=== PATIENT | female | born 1990 | race Caucasian/White ===

== ENCOUNTER 2021-05-25 15:45 | Emergency (ER) | payer OTHER, SELFPAY ==
[2021-05-25 16:04] VITALS: BP 126/71; PULSE 86; RESP 16; TEMP 36.6; O2SAT 100
--- NOTE | 2021-05-25 16:05 | ED.URI ---
HPI - URI/Sore Throat General Chief Complaint: Upper Respiratory Infection Stated Complaint: sore throat Time Seen by Provider: 05/25/21 16:05 Source: patient and RN notes reviewed Mode of arrival: ambulatory Limitations: no limitations History of Present Illness HPI Narrative: 30-year-old female who is 3 months presents with concern for sore throat, nasal drainage, postnasal drainage. Reports her son has similar symptoms who was also exposed to strep. She denies nausea, vomiting, diarrhea, body aches, fever, cough, shortness of breath. She reports in a separate complaint, she also has right lower dental pain. Reports she finished a round of clindamycin 1 week ago for dental pain and jaw swelling which improved the pain. Reports she still has a bump on her gumline. Reports she has a dentist appointment in June. MD elicited complaint: sore throat Related Data Home Medications Medication Instructions Recorded Confirmed progesterone micronized mg 05/25/21 Allergies Allergy/AdvReac Type Severity Reaction Status Date / Time No Known Allergies Allergy Verified 05/25/21 16:19 Review of Systems Review of Systems: CONSTITUTIONAL: Denies malaise, chills, sweats, or fever. EYES: Denies visual changes, redness, or discharge. ENT: Reports rhinorrhea, congestion, sore throat. Denies sinus pain, otalgia. A bump on her gumline of the right lower side CARDIOVASCULAR: Denies chest pain, palpitations, or edema. RESPIRATORY: Denies cough or dyspnea. GASTROINTESTINAL: Denies abdominal pain, nausea, vomiting, diarrhea SKIN: Denies rash or itching. MUSCULOSKELETAL: Denies myalgia. NEUROLOGIC: Denies headache. All systems reviewed & are unremarkable except as noted in HPI and below PMFSH Past Medical History Medical History (Updated 05/25/21 @ 16:23 by Marii Herman NP) Anxiety Surgical History Surgical History History of myringotomy History of tonsillectomy and adenoidectomy Social History Social History Smoking status: Never smoker Alcohol intake: never Substance use: never Gender identity (if verbalized by the patient): Female Comments At time of signature, agree with nursing past medical, surgical, social and family history. There is no relevant family history pertinent to the presenting complaint Exam Narrative: GENERAL: Well-appearing, well-nourished, and in no acute distress. HEAD: Normocephalic EYES: PERRLA, conjunctivae clear ENT: Nares clear, turbinates erythematous, clear discharge. Mucous membranes moist. TM pearly andrade with sharp light reflex bilaterally; no tragal tenderness. Oropharynx not erythematous without lesions. Tonsils not enlarged and without exudate, no drooling, no hoarseness, no trismus, uvula midline. Periapical abscess noted below tooth #30 without significant gumline erythema, edema, no jawline edema noted NECK: Supple. No lymphadenopathy CHEST: Clear to auscultation, breath sounds equal. No wheezing, rhonchi, rales, or stridor. No respiratory distress, speaks in full sentences. HEART: Regular rate and rhythm. No murmur heard. SKIN: Warm, dry, no rash. NEURO: Alert and oriented x3. PSYCH: Normal mood and affect Course Course Emergency Course: Patient given copy of prescription for Augmentin, instructed to not fill the prescription unless her symptoms of dental pain and swelling worsen before she is a dentist. Patient not treated for presumptive strep. Patient is aware of diagnosis, understands and agrees to treatment plan. Anticipatory guidance given. Patient agrees to follow-up as directed and is aware of reasons to seek care at the emergency department. Portions of this record may have been created with voice recognition software Vital Signs Vital signs: Vital Signs Temperature 98 F 05/25/21 16:04 Pulse Rate 86 05/25/21 16:04 Respiratory Rate 16
== END 2021-05-25 16:33 | disposition home or self-care (01) ==
PROVIDERS: Emergency Provider Nurse Practitioner; PCP Nurse Practitioner Family
DX: K04.7 Periapical abscess without sinus (principal); J06.9 Acute upper respiratory infection, unspecified
CPT/HCPCS: 87081; 87880; 99213; G0463

== ENCOUNTER 2021-07-02 18:14 | Emergency (ER) | payer OTHER, SELFPAY ==
[2021-07-02 18:24] VITALS: BP 126/105; PULSE 79; RESP 18; TEMP 36.3; O2SAT 100
--- NOTE | 2021-07-02 18:47 | ED.ABDPAIN ---
HPI - Abdominal Pain General Chief Complaint: Abdominal Pain Stated Complaint: 17 weeks preg - abd pain Time Seen by Provider: 07/02/21 18:35 Source: patient Mode of arrival: ambulatory Limitations: no limitations History of Present Illness HPI narrative: This is a 30-year-old G2, P1, 17 weeks that presents to the emergency department for abdominal cramping. Reports intermittent crampy upper and lower abdominal pain. This has been ongoing since yesterday. She is worried about the baby which prompted her to be seen. She does report some nausea. Denies fever, vomiting, diarrhea, dysuria, hematuria, or vaginal bleeding. Related Data Home Medications Medication Instructions Recorded Confirmed progesterone micronized mg 05/25/21 Allergies Allergy/AdvReac Type Severity Reaction Status Date / Time amoxicillin Allergy Other Verified 07/02/21 19:14 Review of Systems Review of Systems: CONSTITUTIONAL: Denies fever GASTROINTESTINAL: Reports abdominal pain, nausea. Denies vomiting, or diarrhea. GENITOURINARY: Denies dysuria or hematuria. All systems reviewed & are unremarkable except as noted in HPI and below PMFSH Past Medical History Medical History (Updated 07/02/21 @ 20:25 by Sindhu Reese PA-C) Anxiety Surgical History Surgical History History of myringotomy History of tonsillectomy and adenoidectomy Social History Social History Smoking status: Never smoker Alcohol intake: never Substance use: never Gender identity (if verbalized by the patient): Female Exam Narrative: GENERAL: Well-appearing, well-nourished, and in no acute distress. HEAD: Normocephalic, atraumatic. EYES: EOMI. CHEST: Clear to auscultation. No respiratory distress. No wheezes rales or rhonchi HEART: Regular rate and rhythm. No murmur heard. Normal peripheral pulses. ABDOMEN: Gravid, nontender, nondistended, normal active bowel sounds. EXTREMITIES: Normal range of motion. No edema. SKIN: Warm, dry, no rash. NEURO: No focal deficits. Alert and oriented x3. PSYCH: Normal mood and affect Procedures Other Procedure Procedure 1: Other Procedure: Bedside ultrasound performed with appropriate movement and cardiac activity, heart rate noted to be 136 Course Consultations Consultation #1: Spoke with Dr. Colindres about patient and work-up who will follow up in clinic. Date: 07/02/21 Time: 20:22 Vital Signs Vital signs: Vital Signs Temperature 97.3 F L 07/02/21 18:24 Pulse Rate 79 07/02/21 18:24 Respiratory Rate 18 07/02/21 18:24 Blood Pressure 126/105 H 07/02/21 18:24 Pulse Oximetry 100 07/02/21 18:24 Temperature 97.9 F 07/02/21 19:09 Pulse Rate 74 07/02/21 19:09 Respiratory Rate 18 07/02/21 19:09 Blood Pressure 117/73 07/02/21 19:09 Pulse Oximetry 100 07/02/21 19:09 MDM - Abdominal Pain MDM Narrative Medical decision making narrative: Patient presents emergency department for upper and lower abdominal cramping noted intermittently since yesterday. She is afebrile and nontoxic-appearing. CBC is without leukocytosis. Does show normocytic anemia with hemoglobin of 11.2. Metabolic panel and lipase without concerning findings. UA with 10-15 white blood cells and trace bacteria, also many squamous epithelial cells. This will be sent for culture. Patient will be started on Macrobid for bacteriuria in . Patient hydrated and given Tylenol and Zofran with relief. Spoke with Dr. Colindres about patient and work-up who will follow up in clinic. Patient is stable and felt appropriate for further outpatient evaluation. She was given warnings to return to the ER Lab Data Attestation: I reviewed the patient's lab results. Result diagrams: 07/02/21 18:50 07/02/21 18:50 Labs: Lab Results 07/02/21 07/02/21 07/02/21 Range/Units
[2021-07-02 18:57] LABS: Basophils Percent Auto 0.4 % (0.2-1.2); Eosinophils Absolute Auto 0.2 K/mm3 (0-0.3); Hematocrit 32.9 % (37.0-47.0); Hemoglobin 11.2 g/dL (12.0-15.0); Immature Granulocyte Absolute 0.05 K/mm3 (0.00-0.031); Immature Granulocyte Percent A 0.6 % (0-0.5); Lymphocytes Absolute Auto 1.95 K/mm3 (0.9-3.2); Lymphocytes Percent Auto 23.5 % (18.3-44.2); Mean Corpuscular Volume 88.2 fl (80-100); Mean Platelet Volume 9.5 fl (7.4-10.4); Monocytes Absolute Auto 0.5 K/mm3 (0.1-0.6); Monocytes Percent Auto 5.4 % (2.6-8.5); Neutrophils Absolute Auto 5.7 K/mm3 (1.3-6.7); Neutrophils Percent Auto 68.1 % (45.5-73.1); Platelet Count Result 214 k/mm3 (150-375); Red Blood Count 3.73 M/mm3 (4.2-5.4); Red Cell Distribution Width 12.4 % (11.5-14.5); White Blood Count 8.3 K/mm3 (4.5-10.0)
[2021-07-02 19:08] LABS: Alanine Aminotransferase 10 U/L (4-35); Albumin Level 4.2 g/dL (3.5-5.1); Alkaline Phosphatase 56 U/L (38-126); Anion Gap 6 mmol/L (8-16); Aspartate Amino Transferase 18 U/L (14-36); Bilirubin,Total 0.3 mg/dL (0.2-1.3); Blood Urea Nitrogen 5 mg/dL (7-17); Carbon Dioxide 22 mmol/L (22-30); Chloride 103 mmol/L (98-107); Estimated CRCL calculation 201 ml/min; Estimated Glomerular Filt Rate > 60; Glucose 82 mg/dL (65-110); Lipase 31 U/L (23-300); Potassium 3.6 mmol/L (3.4-5.0); Sodium 131 mmol/L (137-145)
[2021-07-02 19:09] VITALS: BP 117/73; PULSE 74; RESP 18; TEMP 36.6; O2SAT 100
[2021-07-02 19:17] LABS: Add Urine Microscopic? YES; Appearance Urine Cloudy (Clear); Bacteria Urine Trace /hpf; Bilirubin Urine Negative (Negative); Blood Urine Negative (Negative); Color Urine Yellow (Yellow); Glucose Urine UA Negative (Negative); Ketones Urine 2+ mg/dL (Negative); Leukocyte Esterase Ur 2+ LEU/UL (Negative); Mucus Urine Rare /lpf; Nitrate Urine Negative (Negative); Protein Urine Negative (Negative); Specific Grav Ur 1.018 (1.001-1.035); Squamous Epithelial Cell Urine Many /hpf (Few); Urobilinogen Urine Negative mg/dL (<2.0)
[2021-07-02] MEDS: SODIUM CHLORIDE 0.9% IV 1,000 ML 999 ML IV CONT (19:28)
[2021-07-02] MEDS: ONDANSETRON INJ 4 MG/2 ML VIAL IV PUSH (19:29)
[2021-07-02 20:47] VITALS: BP 108/71; PULSE 62; RESP 16; TEMP 36.2; O2SAT 100
== END 2021-07-02 20:49 | disposition home or self-care (01) ==
PROVIDERS: Emergency Medicine; Emergency Provider Emergency Medicine; PCP Nurse Practitioner Family
DX: O26.892 Other specified pregnancy related conditions, second trimester (principal); R82.71 Bacteriuria; R10.30 Lower abdominal pain, unspecified; R10.10 Upper abdominal pain, unspecified; Z3A.17 17 weeks gestation of pregnancy
CPT/HCPCS: 36415; 80053; 81001; 83690; 85025; 87086; 96361; 96374; 96375; 99284; J0131; J2405; J7030

== ENCOUNTER 2021-08-11 00:48 | Emergency (ER) | payer OTHER, SELFPAY ==
[2021-08-11 01:10] VITALS: BP 134/89; PULSE 90; RESP 20; TEMP 37.8; O2SAT 99
--- NOTE | 2021-08-11 04:11 | ED.GENADULT ---
HPI - General Adult General Chief complaint: Unspecified Stated complaint: sick for a few days, 24 weeks preg. Time Seen by Provider: 08/11/21 03:19 History of Present Illness HPI narrative: 30-year-old female that is 24 weeks presents to the emergency department complaining of nasal congestion sore throat and body aches. Patient states she also has lost her sense of taste and smell. Patient is not vaccinated to Covid or influenza. Patient denies any chest pain or shortness of breath. Patient denies any abdominal pain, uterine cramping vaginal bleeding or vaginal discharge. Related Data Home Medications Medication Instructions Recorded Confirmed progesterone micronized mg 05/25/21 Allergies Allergy/AdvReac Type Severity Reaction Status Date / Time amoxicillin Allergy Other Verified 07/02/21 19:14 Review of Systems Review of Systems: All systems reviewed & are unremarkable except as noted in HPI and below Constitutional: Constitutional: Reports no additional constitutional complaints Eyes: Eyes: Reports no additional eye complaints ENT: Reports system reviewed and no additional complaints, except as documented Cardiovascular: Cardiovascular: Reports no additional cardiovascular complaints Respiratory: Respiratory: Reports no additional respiratory complaints Gastrointestinal: Gastrointestinal: Reports no additional gastrointestinal complaints Musculoskeletal: Musculoskeletal: Reports no additional musculoskeletal complaints Integumentary/Breasts: Skin/Breast: Reports system reviewed and no additional complaints, except as docu Neurologic: Reports system reviewed and no additional complaints, except as documented Psychiatric: Psychiatric: Reports no additional psychiatric complaints Endocrine: Endocrine: Reports no additional endocrine complaints Hematologic/Lymphatic: Hematologic/Lymphatic: Reports no additional hematologic/lymphatic complaints Allergic/Immunologic: Allergic/Immunologic: Reports no additional allergic/immunologic complaints [facility] Past Medical History Medical History (Updated 08/12/21 @ 00:00 by [facility] Gray) Anxiety Surgical History Surgical History History of myringotomy History of tonsillectomy and adenoidectomy Social History Social History Smoking status: Never smoker Alcohol intake: never Substance use: never Gender identity (if verbalized by the patient): Female Exam Const: General: healthy appearing, no acute distress and alert Nutritional Appearance: well nourished Orientation/consciousness: patient oriented x3 Limitations: altered mental status HENMT: Head: normal to inspection and atraumatic Eyes: Conjunctivae: conjunctivae normal Sclera: sclerae normal Pupils: Equal, round and reactive pupils present EOM: EOMs intact bilaterally Neck: Neck: normal visual inspection Chest: Chest palpation & inspection: normal inspection of the chest and no tenderness Resp: Effort & Inspection: normal respiratory effort Auscultation: clear to auscultation bilaterally Cardio: Rate: regular rate Rhythm: regular rhythm GI: GI Palp: Yes Soft to palpation, No Tenderness to palpation present (GI), No Guarding due to palpation present (GI) and No Palpable mass present Percussion: Yes normal to percussion Auscultation: normal bowel sounds : General: Yes no CVA tenderness Back/Spine/Pelvis: Back: no CVA tenderness Skin: General skin exam: normal color Rashes: no rashes Wounds: no wounds Neuro: General: patient oriented x3, moves all extremities and no focal motor deficits Cranial nerves: Yes Equal, round and reactive pupils present Extrem: General: normal to inspection and no pedal edema Psych: Mental Status: mental status grossly normal Affect: normal affect Attitude: cooperative Course Reevaluation(s) Reevaluation #1:
--- NOTE | 2021-08-11 04:15 | PC.NURSE ---
Call to OB for NST monitoring as pt reports decreased movement.
--- NOTE | 2021-08-11 04:28 | PC.NURSE ---
OB here to monitor movement
[2021-08-11 04:46] VITALS: BP 129/76; PULSE 84; RESP 19; TEMP 37; O2SAT 99
--- NOTE | 2021-08-11 05:01 | PC.NURSE ---
per Mireya in OB, pt has a rate in the 160's with reactive tracing. Dr. Carter made aware.
--- NOTE | 2021-08-11 05:04 | PC.NURSE ---
pt being evaluated in ED for illness- NST requested per ER doctor. pt states that she has an anterior placenta and barely feels baby move because of that. while in room baby was noted audibly on monitor to be moving. Juan F [facility] notified of reactive NST.
[2021-08-11 21:22] LABS: SARS-CoV-2 RNA PCR Negative
== END 2021-08-11 05:32 | disposition home or self-care (01) ==
PROVIDERS: Emergency Provider Emergency Medicine; PCP Nurse Practitioner Family
DX: O98.512 Other viral diseases complicating pregnancy, second trimester (principal); B34.9 Viral infection, unspecified; Z20.822 Contact with and (suspected) exposure to COVID-19; Z3A.24 24 weeks gestation of pregnancy
CPT/HCPCS: 87081; 87804; 87880; 99283; C9803; U0003; U0005

== ENCOUNTER 2021-09-07 06:51 | Outpatient (RCR) | payer OTHER, SELFPAY ==
[2021-09-07 07:41] VITALS: BP 131/71; PULSE 77
--- NOTE | 2021-09-07 09:15 | PM.OBTRLD ---
OB - Triage/Final Diagnosis Visit Information Date of evaluation: 09/07/21 Reason for evaluation: decreased movement Comments/Additional reasons for admission: I have assessed the risk for this patient, Rachel Hernandez Gary, and determined that she would benefit from observation care. Evaluation Vital signs: Vital Signs - 24 hr 09/07/21 07:41 Pulse Rate 77 Blood Pressure [Left Arm] 131/71
== END 2021-12-06 23:59 | disposition home or self-care (01) ==
LOC: ANHOBOP 06:51
PROVIDERS: PCP Nurse Practitioner Family; Referring Provider Obstetrics & Gynecology; Visit Provider Obstetrics & Gynecology
DX: O36.8120 Decreased fetal movements, second trimester, not applicable or unspecified (principal); Z3A.27 27 weeks gestation of pregnancy
CPT/HCPCS: 59025

== ENCOUNTER 2021-10-16 15:45 | Observation (INO) | payer OTHER, SELFPAY ==
[2021-10-16 16:01] VITALS: BP 135/76; PULSE 92; RESP 18; TEMP 36.6
[2021-10-16 16:16] VITALS: BP 129/57; PULSE 82
--- NOTE | 2021-10-16 16:22 | OBADM ---
This patient, Rachel Gary, admitted to the OB room OB Post 115 for observation. Patient/family oriented to hospital policies and general routines including ID bracelet, bed and alarms, visiting hours, pain management, procedures, bathroom and other care routines, personal items, smoking policy, room service/diet, and visiting hours. Patient/Family are encouraged to report perceived risks to care and to ask questions if they do not understand what they are told or what they should do.
[2021-10-16 16:23] VITALS: BMI 39.2
[2021-10-16 16:31] VITALS: BP 107/69; PULSE 69
[2021-10-16] MEDS: LACTATED RINGERS 1,000 ML 999 ML IV CONT (16:55)
--- NOTE | 2021-10-16 21:09 | PM.OBTRLD ---
OB - Triage/Final Diagnosis Visit Information Date of evaluation: 10/16/21 Reason for evaluation: other (Diarrhea, emesis) Comments/Additional reasons for admission: I have assessed the risk for this patient, Rachel Ng Abdirahman, and determined that she would benefit from observation care. Evaluation Vital signs: Vital Signs - 24 hr 10/16/21 16:01 10/16/21 16:16 10/16/21 16:31 Temperature 36.6 C Pulse Rate 92 82 69 Respiratory Rate 18 Blood Pressure 135/76 129/57 L 107/69
== END 2021-10-16 17:48 | disposition home or self-care (01) ==
PROVIDERS: Admitting Provider Obstetrics & Gynecology; PCP Nurse Practitioner Family; Visit Provider Student in an Organized Health Care Education/Training Program
DX: O99.891 Other specified diseases and conditions complicating pregnancy (principal); R19.7 Diarrhea, unspecified; O21.9 Vomiting of pregnancy, unspecified; Z3A.32 32 weeks gestation of pregnancy
CPT/HCPCS: G0378; G0379; J7120

== ENCOUNTER 2021-11-17 03:37 | Observation (INO) | payer OTHER, SELFPAY ==
--- NOTE | ~2021-11-17 | US_ITS ---
EXAMINATION: US OB limited w BPP DATE: 11/17/2021 07:29 INDICATION: Decreased movement during third trimester TECHNIQUE: Real-time pelvic ultrasound was performed. The interpreting radiologist was not present fo r the study. COMPARISON: None. FINDINGS: There is a single living fetus in vertex presentation. The placenta is anterior. heart rate is 163 beats per minute (bpm). The amniotic fluid index is 7.6 cm which is normal (normal range: 7.5 cm to 24.4 cm). Biophysical profile performed by the technologist: breathing (30 sec sustained breathing in 30 minutes): 2 out of 2 movement (3 gross body movements in 30 minutes): 2 out of 2 tone (one episode of fwzlaqu-mckbevrlm-kjrjzuy limb movement): 2 out of 2 Amniotic fluid pocket (2 cm): 2 out of 2 Total score: 8 out of 8 IMPRESSION: 1. Single living fetus in vertex presentation. 2. Biophysical profile 8 out of 8. Reviewed, dictated and finalized at location A.
[2021-11-17 05:00] VITALS: BMI 39.6
[2021-11-17 05:15] VITALS: BP 115/54; PULSE 67
[2021-11-17 05:30] VITALS: BP 121/74; PULSE 74
[2021-11-17 05:45] VITALS: BP 132/76; PULSE 75
--- NOTE | 2021-11-17 05:54 | OBADM ---
This patient, Rachel Gary, admitted to the OB room Labor/Delivery/Recovery 104 for observation. Patient/family oriented to hospital policies and general routines including ID bracelet, bed and alarms, visiting hours, pain management, procedures, bathroom and other care routines, personal items, smoking policy, room service/diet, and visiting hours. Patient/Family are encouraged to report perceived risks to care and to ask questions if they do not understand what they are told or what they should do.
[2021-11-17 06:00] VITALS: BP 136/69; PULSE 74
--- NOTE | 2021-11-17 07:42 | PM.OBTRLD ---
OB - Triage/Final Diagnosis Visit Information Date of evaluation: 11/17/21 Reason for evaluation: decreased movement Comments/Additional reasons for admission: I have assessed the risk for this patient, Rachel Gary, and determined that she would benefit from observation care. Evaluation Vital signs: Vital Signs - 24 hr 11/17/21 05:15 11/17/21 05:30 11/17/21 05:45 Pulse Rate 67 74 75 Blood Pressure 115/54 L 121/74 132/76 11/17/21 06:00 Pulse Rate 74 Blood Pressure 136/69
== END 2021-11-17 09:02 | disposition home or self-care (01) ==
PROVIDERS: Admitting Provider Obstetrics & Gynecology; PCP Nurse Practitioner Family; Visit Provider Obstetrics & Gynecology
DX: O36.8130 Decreased fetal movements, third trimester, not applicable or unspecified (principal); Z3A.37 37 weeks gestation of pregnancy
CPT/HCPCS: 76815; 76819; G0378; G0379

== ENCOUNTER 2021-11-25 00:06 | Inpatient (IN) | payer OTHER, SELFPAY ==
[2021-11-25] VITALS (132 sets, daily range): BP systolic 113–175; BP diastolic 55–98; PULSE 54–90; RESP 18; TEMP 36.4–37.3; O2SAT 96–100; BMI 39.6
--- NOTE | 2021-11-25 01:11 | WPDHPUPDATE1 ---
History and Physical Update Update Date/Time: 11/25/21 01:11 31 yo at 38w4d who presents with SROM. History and Physical has been reviewed, including an updated exam of the patient. There are NO changes in the patient's condition. Risks, benefits, and alternatives have been discussed and questions answered. Patient agrees to proceed with procedure. A/P: 31 yo at 38w4d who presents with SROM admit to L&D routine admission orders labs wnl Rh+ GBS neg FHT cat 1 continuous EFM expectant management
[2021-11-25 01:46] LABS: Basophils Percent Auto 0.2 % (0.2-1.2); Eosinophils Absolute Auto 0.1 K/mm3 (0-0.3); Hematocrit 32.8 % (37.0-47.0); Hemoglobin 10.4 g/dL (12.0-15.0); Immature Granulocyte Absolute 0.09 K/mm3 (0.00-0.031); Immature Granulocyte Percent A 0.7 % (0-0.5); Lymphocytes Absolute Auto 2.59 K/mm3 (0.9-3.2); Mean Corpuscular HGB Conc 31.7 g/dl (32-36); Mean Corpuscular Hemoglobin 27.2 pg (26-34); Mean Corpuscular Volume 85.9 fl (80-100); Mean Platelet Volume 10.2 fl (7.4-10.4); Monocytes Absolute Auto 0.8 K/mm3 (0.1-0.6); Monocytes Percent Auto 5.7 % (2.6-8.5); Neutrophils Percent Auto 73.4 % (45.5-73.1); Platelet Count Result 261 k/mm3 (150-375); Red Blood Count 3.82 M/mm3 (4.2-5.4); Red Cell Distribution Width 14.2 % (11.5-14.5); White Blood Count 13.6 K/mm3 (4.5-10.0)
[2021-11-25] MEDS: OXYTOCIN 30 UNITS/NS 500 ML 30 UNITS/500 ML BAG IV CONT (02:46)
[2021-11-25] MEDS: LACTATED RINGERS 1,000 ML 125 ML IV CONT ×3 (02:46→09:26)
[2021-11-25] MEDS: fentaNYL CITRATE INJ (*CRX) 100 MCG/2 ML VIAL 50 MCG IV PUSH ×2 (05:48→06:21)
--- NOTE | 2021-11-25 06:27 | LDADM ---
This patient, Rachel Gary, was admitted to Labor/Delivery/Recovery 103 on 11/25/21 at 00:06. Plans for labor, pain management and were discussed with patient. Patient/family oriented to hospital policies and general routines including ID bracelet, bed and alarms, visiting hours, pain management, procedures, bathroom and other care routines, personal items, smoking policy, room service/diet and guest tray routines, infant security routines, and visiting hours. Patient/Family are encouraged to report perceived risks to care and to ask questions if they do not understand what they are told or what they should do. See OBIX for further documentation.
--- NOTE | 2021-11-25 06:47 | WPDANESEPP ---
Anes - Eval Pre Procedure Procedure: Labor epidural Date/Time: 11/25/21 06:47 Surgeon: Steve Mccrary Preop Diagnosis: Abd pain with contractions Pre Op Diagnosis: SROM Patient Data Age: 31 Gender: F Height: 1.65 m Weight: 108 kg Last Vital Signs Temp 98.7 F 11/25/21 05:52 Pulse 64 11/25/21 06:45 BP 115/63 11/25/21 06:45 Allergies Allergy/AdvReac Type Severity Reaction Status Date / Time amoxicillin Allergy Other Verified 11/17/21 06:03 aloe AdvReac Redness of Verified 11/17/21 06:03 Skin Home Medications Medication Instructions Recorded Confirmed Type Classic 1 tablet PO DAILY 10/16/21 10/16/21 History ferrous sulfate 325 mg PO DAILY 10/16/21 10/16/21 History Laboratory Tests 11/25/21 11/25/21 11/25/21 01:30 01:30 01:30 WBC 13.6 K/mm3 H K/mm3 (4.5-10.0) RBC 3.82 M/mm3 L M/mm3 (4.2-5.4) Hgb 10.4 g/dL L g/dL (12.0-15.0) Hct 32.8 % L % (37.0-47.0) MCV 85.9 fl fl (80-100) MCH 27.2 pg pg (26-34) MCHC 31.7 g/dl L g/dl (32-36) RDW 14.2 % % (11.5-14.5) Plt Count 261 k/mm3 k/mm3 (150-375) MPV 10.2 fl fl (7.4-10.4) Immature Gran % (Auto) 0.7 % H % (0-0.5) Neut % (Auto) 73.4 % H % (45.5-73.1) Lymph % (Auto) 19.0 % % (18.3-44.2) [place] % (Auto) 5.7 % % (2.6-8.5) Eos % (Auto) 1.0 % % (0-4.4) Baso % (Auto) 0.2 % % (0.2-1.2) Lymph # (Auto) 2.59 K/mm3 K/mm3 (0.9-3.2) [place] # (Auto) 0.8 K/mm3 H K/mm3 (0.1-0.6) Eos # (Auto) 0.1 K/mm3 K/mm3 (0-0.3) Baso # (Auto) 0.0 K/mm3 K/mm3 (0.0-0.1) Abs Immat Gran (auto) 0.09 K/mm3 H K/mm3 (0.00-0.031) Absolute Neuts (auto) 10.0 K/mm3 H K/mm3 (1.3-6.7) Absolute Nucleated RBC 0.0 K/mm3 K/mm3 (0.0-0.012) Nucleated RBC % 0.0 % % (0.0-0.2) RPR Pending Blood Type O Positive Antibody Screen Negative Patient hx anesthesia problems: none Family hx anesthesia problems: none Results Review: All pre-operative results and documents have been reviewed as part of the pre-operative evaluation. 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
--- NOTE | 2021-11-25 07:43 | PM.IMHP ---
H&P: HPI History of Present Illness Date/Time: 11/25/21 07:43 31-year-old 5 para 1 whose last menstrual period was 02/28/2021, EDC is 12/05/2021, presents at term in active labor with spontaneous rupture membranes. has been uncomplicated although she did have a abnormal 1hour GCT with 4/4 normal GTT. 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 Surgical History Surgical History History of myringotomy History of tonsillectomy and adenoidectomy Family History Family History Father History of blood clots Other Patient's father is Social History Social History Smoking status: Never smoker Alcohol intake: never Substance use: never Gender identity (if verbalized by the patient): Female Spiritual care concerns: No Meds Home Medications and Allergies Home Medications Medication Instructions Recorded Confirmed Type Classic 1 tablet PO DAILY 10/16/21 10/16/21 History ferrous sulfate 325 mg PO DAILY 10/16/21 10/16/21 History Allergies Allergy/AdvReac Type Severity Reaction Status Date / Time amoxicillin Allergy Other Verified 11/17/21 06:03 aloe AdvReac Redness of Verified 11/17/21 06:03 Skin Vital Signs Vital Signs - 24 hr 11/25/21 01:37 11/25/21 01:39 11/25/21 02:51 Temperature 98 F Pulse Rate 72 59 L Blood Pressure 138/75 137/72 11/25/21 03:00 11/25/21 03:15 11/25/21 03:30 Temperature Pulse Rate 67 61 68 Blood Pressure 133/78 139/94 H 131/72 11/25/21 04:25 11/25/21 04:30 11/25/21 04:45 Temperature Pulse Rate 66 62 63 Blood Pressure 138/80 138/81 139/76 11/25/21 05:00 11/25/21 05:16 11/25/21 05:30 Temperature Pulse Rate 59 L 62 67 Blood Pressure 142/72 H 136/79 135/81 11/25/21 05:45 11/25/21 05:52 11/25/21 06:00 Temperature 98.7 F Pulse Rate 63 67 Blood Pressure 149/74 H 127/66 11/25/21 06:15 11/25/21 06:30 11/25/21 06:45 Temperature Pulse Rate 67 65 64 Blood Pressure 126/66 117/67 115/63 11/25/21 07:00 11/25/21 07:15 11/25/21 07:30 Temperature Pulse Rate 67 66 67 Blood Pressure 114/64 117/65 119/62 Exam Const: General: no acute distress Eyes: General: appearance normal, both eyes and all related structures Neck: Neck: supple and no JVD Thyroid: thyroid normal Resp: Effort & Inspection: normal respiratory effort Auscultation: clear to auscultation bilaterally Cardio: Rate: regular rate Rhythm: regular rhythm GI: Inspection: non-distended GI Palp: Yes Soft to palpation, No Tenderness to palpation present (GI) and No Guarding due to palpation present (GI) Auscultation: normal bowel sounds : External Female Exam: normal external appearance Speculum Exam - Vagina: normal appearance of the vagina Speculum Exam - Cervix: normal appearance of the cervix ( cervix 1.5cm by RN exam. Clear fluid is seen. FHTs reassuring) Skin: General skin exam: no rashes or lesions noted Extrem: General: normal to inspection and no edema Psych: Mental Status: mental status grossly normal Affect: normal affect H&P: Results Labs Labs: Short CBC 11/25/21 Range/Units 01:30 WBC 13.6 H (4.5-10.0) K/mm3 Hgb 10.4 L (12.0-15.0) g/dL Hct 32.8 L (37.0-47.0) % Plt Count 261 (150-375) k/mm3 Assessment and Plan Additional Plan impression: Term with spontaneous ru
[2021-11-25 08:00] LABS: Rapid Plasma Reagin Non-Reactive (NonReactive)
[2021-11-25] MEDS: SODIUM CHLORIDE 0.9% IV 200 ML 600 ML I-UTERINE (11:42)
--- NOTE | 2021-11-25 12:19 | PM.OBPNLAB ---
Pain Control Date/time seen: 11/25/21 12:19 Pain control: tolerating well and epidural Pelvic Exam Dilation (cm): 5 Contractions Monitor mode: Internal
[2021-11-25] MEDS: AMPICILLIN 2 GM/NS 100 ML 2 GM/100 ML BAG IVPB (13:04)
--- NOTE | 2021-11-25 14:32 | P.PCNOB_ITS ---
OB - Delivery Note Procedure Delivery date: 11/25/21 Induction method: None Delivery monitor: External FHT Route of delivery: Episiotomy description: None Laceration Description: None Quantitative Blood Loss (ml): 59 Anesthesia type: Epidural Disposition: Floor [place] Baby Date of : 11/25/21 Time of : 14:24 Weeks of gestation at delivery: 38 gender: Male presentation: vertex position: Right Occiput Anterior Placenta delivery description: Spontaneous Cord Vessel Description: 3 Vessels score one minute: 9 score five minutes: 9
[2021-11-25] MEDS: OXYTOCIN 30 UNITS/NS 500 ML 30 UNITS/500 ML BAG 125 UNITS IV CONT (14:56)
[2021-11-25] MEDS: WITCH HAZEL 40 PADS 1 PAD TOPICAL (16:41)
[2021-11-25] MEDS: IBUPROFEN 600 MG TABLET PO ×2 (16:41→22:44)
[2021-11-25] MEDS: ACETAMINOPHEN 325 MG TABLET 650 MG PO (19:17)
[2021-11-26 04:23] VITALS: BP 132/79; PULSE 73; RESP 18; TEMP 36; O2SAT 100
[2021-11-26 05:06] LABS: Hematocrit 27.7 % (37.0-47.0); Hemoglobin 9.1 g/dL (12.0-15.0)
[2021-11-26 07:22] VITALS: BP 118/72; PULSE 62; RESP 18; TEMP 36.6; O2SAT 99
[2021-11-26] MEDS: POLYSACCHARIDE IRON COMPLEX 150 MG CAPSULE PO ×2 (07:22→17:15)
[2021-11-26] MEDS: IBUPROFEN 600 MG TABLET PO ×2 (07:22→17:15)
[2021-11-26] MEDS: DOCUSATE SODIUM 100 MG CAPSULE PO ×2 (07:22→17:15)
[2021-11-26] MEDS: MULTIVIT/MIN/PREN/FOL AC/IRON TABLET 1 TAB PO (07:22)
--- NOTE | 2021-11-26 07:55 | WPDANLDPN2 ---
Anes-Prog Note L&D Date/Time: 11/26/21 07:55 Comfortable throughout: labor and delivery Neuraxial method: epidural Epidural/Spinal procedure site: clean & non-tender Neuro status: Neuro function grossly intact. Cardiovascular status: normal Respiratory status: normal Airway patency: baseline Mental status: baseline Post-Op hydration status: normal Vital Signs: Last Vital Signs Temp 36.6 C 11/26/21 07:22 Pulse 62 11/26/21 07:22 Resp 18 11/26/21 07:22 BP 118/72 11/26/21 07:22 Pulse Ox 99 11/26/21 07:22 Pain score (VAS): 3 I/O: Intake & Output 11/25/21 11/25/21 11/26/21 15:59 23:59 07:59 Intake Total 2600 300 Output Total 59 148 Balance 2541 152 Post-procedural complaints: none Patient feedback: Patient satisfied with anesthetic care.
--- NOTE | 2021-11-26 08:04 | P.PNOB_ITS ---
OB - PN: Subj Subjective Date/time seen: 11/26/21 08:04 Interval history: desires circ for son Patient comments: no complaints and pain well controlled [place] baby status: doing well OB - PN: Obj Data Labs CBC & Chem 7: 11/26/21 04:08 Labs: Laboratory Results - last 24 hr 11/26/21 04:08 Hgb 9.1 L Hct 27.7 L OB - PN A/P Plan day: 1 Plan: routine care Time Spent With Patient Time: Total time spent is greater than 50% in coordination of care (as documented) at patient's floor/unit and/or counseling patient: Time with patient: less than 15 minutes Review of Systems Review of Systems: All systems reviewed & are unremarkable except as noted in HPI and below
[2021-11-26 11:19] VITALS: BP 135/72; PULSE 64; RESP 20; TEMP 36.7; O2SAT 99
--- NOTE | 2021-11-26 11:24 | PC.NURSE ---
On 11/26/21, the student, Page Taylor, provided care and completed [employer] documentation on this patient. I have reviewed the student's documentation and agree with the findings.
--- NOTE | 2021-11-26 11:28 | PC.NURSE ---
[id number] Introductions were made, then consulted with patient to assess needs related to . Mother led the conversation with her experience feeding her so far and states she plans to pump and feed. Encouraged understanding of the benefits of skin to skin (unwrapping and placing vertically on her chest), responsive feeding and how to watch for early feeding signs, frequency of pumping/feeding on demand 8 times in 24 hours 1-2 times at night) every 3 hours, milk production, duration of pumping, signs of adequate intake/output and how to record on the feeding sheet. Resources used to facilitate learning were used with the mom and baby guide. Mother voiced understanding of responsive feedings, stimulating with skin to skin, pump/feed every 3 hours, and to call for assistance if infant doesn't wake to eat or eat more than 10mls. Reported to the primary RN.
[2021-11-26] MEDS: ACETAMINOPHEN 325 MG TABLET 650 MG PO (19:04)
[2021-11-26 20:00] VITALS: BP 157/98; PULSE 83; RESP 18; TEMP 36.4; O2SAT 100
[2021-11-26 20:15] VITALS: BP 140/90
[2021-11-27] MEDS: ACETAMINOPHEN 325 MG TABLET 650 MG PO (07:31)
[2021-11-27] MEDS: IBUPROFEN 600 MG TABLET PO ×2 (07:32→14:07)
[2021-11-27] MEDS: POLYSACCHARIDE IRON COMPLEX 150 MG CAPSULE PO (07:32)
[2021-11-27] MEDS: MULTIVIT/MIN/PREN/FOL AC/IRON TABLET 1 TAB PO (07:33)
[2021-11-27] MEDS: DOCUSATE SODIUM 100 MG CAPSULE PO (07:33)
[2021-11-27 07:36] VITALS: BP 144/78; PULSE 77; RESP 18; TEMP 36.6
--- NOTE | 2021-11-27 07:41 | P.DS_ITS ---
DS: Admitting Diagnosis Discharge Date 11-08 Admitting Diagnosis term DS: Summary Hospital Course Hospital Course: the patient was admitted spontaneous rupture membranes at [facility]. Pitocin augmentation was undertaken and spontaneous vaginal delivery which was unremarkable was performed. Her hospital course was unremarkable. She remained afebrile. She was up, voiding without difficulty, ambulating, and generally without complaints. Time Spent with Patient Time attestation: Total time spent providing and/or coordinating discharge services: Exam Const: General: no acute distress Eyes: General: appearance normal, both eyes and all related structures Neck: Neck: supple and no JVD Thyroid: thyroid normal Resp: Effort & Inspection: normal respiratory effort Auscultation: clear to auscultation bilaterally Cardio: Rate: regular rate Rhythm: regular rhythm GI: Inspection: non-distended GI Palp: Yes Soft to palpation, No Tenderness to palpation present (GI) and No Guarding due to palpation present (GI) Auscultation: normal bowel sounds : General: Yes bladder normal to palpation External Female Exam: normal external appearance Speculum Exam - Vagina: normal vaginal discharge and No vaginal bleeding Speculum Exam - Cervix: nontender Bimanual exam- vagina & uterus: bladder normal to palpation and No Cervical tenderness present OB/external & speculum: No vaginal bleeding Skin: General skin exam: no rashes or lesions noted Extrem: General: normal to inspection and no edema Psych: Mental Status: mental status grossly normal Affect: normal affect Discharge Plan Discharge Attending physician on discharge: Luis Mckenzie Discharging Clinician: Luis Mckenzie Patient Disposition: Home, Self-Care Activity: may shower, no straining and pelvic rest Diet: heart healthy Wound Care Instructions: follow printed instructions Patient Instructions: Antibiotic Form Stand Alone Forms: General Discharge Information Follow-up/Referrals: Luis Mckenzie MD [Physician] - Discharge Medications: Continued ferrous sulfate 325 mg (65 mg iron) tablet,delayed release (DR/EC) 325 mg PO DAILY RF: 0 Classic 1 tablet PO DAILY RF: 0 Date of admission: 11/25/21 00:06 Primary Care Provider: Vanessa,Marva Cummins Admitting Provider: Luis Mckenzie Attending physician on admission: Luis Mckenzie Condition: Stable
--- NOTE | 2021-11-27 09:55 | PC.NURSE ---
Self care and infant care discharge instructions given including follow up visit date and time. Mother verbalized understanding. No questions or concerns voiced. Very pleasant and cooperative. FOB at side.
--- NOTE | 2021-11-27 14:21 | PC.NURSE ---
Instructed pt. to contact Dr. Steve Mccrary with blood pressure greater than 160/90. Blood pressure sheet given to pt. at discharge. Pt. will be returning tomorrow for follow up visit. Instructed to call MD. with any signs or symptoms such as, dizziness, headache, blurred vision or epigastric pain. Sudden swelling of hands or feet. Pt. verbalized understanding.
== END 2021-11-27 15:09 | disposition home or self-care (01) | DRG 560 ==
LOC: ANHLDR 00:41 → ANHOB2 18:09
PROVIDERS: Admitting Provider Student in an Organized Health Care Education/Training Program; PCP Nurse Practitioner Family; Visit Provider Obstetrics & Gynecology
DX: O69.81X0 Labor and delivery complicated by cord around neck, without compression, not applicable or unspecified (principal); Z37.0 Single live birth; Z3A.38 38 weeks gestation of pregnancy; O36.8330 Maternal care for abnormalities of the fetal heart rate or rhythm, third trimester, not applicable or unspecified
CPT/HCPCS: 36415; 84112; 85014; 85018; 85025; 86592; 86850; 86900; 86901; A9270; J0290; J2590; J2795; J3010; J7030; J7120

== ENCOUNTER 2021-11-28 22:35 | Emergency (ER) | payer OTHER, SELFPAY ==
--- NOTE | ~2021-11-28 | XR_ITS ---
EXAMINATION: XR chest 2V DATE: 11/28/2021 23:15 INDICATION: Hypertension and fever TECHNIQUE: PA and lateral views of the chest were obtained. COMPARISON: None FINDINGS: The lungs are clear with no focal airspace opacities, pulmonary edema, pleural effusion or pneumothor ax. The cardiomediastinal silhouette is normal. Mild thoracic spondylosis. IMPRESSION: 1. No acute cardiopulmonary disease. Reviewed, dictated and finalized at location A.
--- NOTE | ~2021-11-28 | CT_ITS ---
EXAMINATION: CTA chest PE protocol DATE: 11/29/2021 01:16 INDICATION: Shortness of breath. Fever. Elevated d-dimer. TECHNIQUE: Computed tomography (CT) pulmonary angiogram of the chest was performed with 100 mL Omnipa que-350 intravenous contrast. Additional 3D reconstructions utilizing coronal maximum intensity proje ction (MIP) were performed. Automated exposure control and iterative reconstruction technique were em ployed. The dose-length product was 749.25 mGy-cm. COMPARISON: None FINDINGS: Good contrast opacification of the pulmonary arteries. There is mild streak artifact from dense contr ast in the superior vena cava and right atrium. Mild scattered respiratory motion artifact which does not significantly limit evaluation. No pulmonary embolism. No pneumonia, pulmonary edema or pleural effusion. Heart size is normal. No pericardial effusion. Thoracic aorta is normal in caliber with no dissection. No pathologically enlarged thoracic lymphadenopathy. IMPRESSION: 1. No pulmonary embolism or other acute cardiopulmonary disease. Reviewed, dictated and finalized at location A.
[2021-11-28 22:41] VITALS: BP 149/87; PULSE 126; RESP 18; TEMP 39.6; O2SAT 100
--- NOTE | 2021-11-28 23:12 | ED.FEVER ---
HPI - Fever General Chief Complaint: Fever Stated Complaint: had baby yesterday now febrile Time Seen by Provider: 11/28/21 22:45 Source: patient Mode of arrival: ambulatory Limitations: no limitations History of Present Illness HPI Narrative: Patient is a 31-year-old female complaining of fever and elevated blood pressure that started tonight. Patient states that she gave , normal spontaneous vaginal delivery yesterday, no complications during . Patient denies any chest pain, shortness of breath, abdominal pain, nausea, vomiting, diarrhea, or urinary symptoms. Related Data Home Medications Medication Instructions Recorded Confirmed Classic 1 tablet PO DAILY 10/16/21 10/16/21 ferrous sulfate 325 mg PO DAILY 10/16/21 10/16/21 Allergies Allergy/AdvReac Type Severity Reaction Status Date / Time amoxicillin Allergy Other Verified 11/17/21 06:03 aloe AdvReac Redness of Verified 11/17/21 06:03 Skin Review of Systems Review of Systems: All systems reviewed & are unremarkable except as noted in HPI and below Constitutional: Constitutional: Denies body ache(s), Denies excessive sweating, Denies fatigue, Denies headache(s), Denies lethargy, Denies malaise, Denies weakness and Denies weight loss Eyes: Eyes: Denies blurry vision, Denies change in vision and Denies loss of vision ENT: Denies dizziness, Denies ear discharge, Denies headache(s), Denies lip swelling, Denies epistaxis, Denies nasal congestion, Denies neck pain, Denies throat swelling and Denies tongue swelling Cardiovascular: Cardiovascular: Denies chest pain, Denies chest pain at rest, Denies chest pain with activity, Denies diaphoresis, Denies rapid heart rate, Denies edema, Denies irregular heart rhythm, Denies lightheadedness, Denies palpitations, Denies dyspnea and Denies dyspnea on exertion Respiratory: Respiratory: Denies chest congestion, Denies cough, Denies hemoptysis, Denies dyspnea and Denies dyspnea on exertion Gastrointestinal: Gastrointestinal: Denies abdominal pain, Denies melena, Denies hematochezia, Denies diarrhea, Denies nausea, Denies vomiting and Denies hematemesis Musculoskeletal: Musculoskeletal: Denies abnormal gait, Denies deformity, Denies joint swelling, Denies limited range of motion, Denies neck pain and Denies numbness Neurologic: Denies Abnormal speech present, Denies abnormal gait, Denies confusion, Denies dizziness, Denies headache(s), Denies focal weakness, Denies loss of vision, Denies numbness, Denies Other visual disturbances, Denies Sensory deficit (Neuro) and Denies weakness Psychiatric: Psychiatric: Denies confusion, Denies depression, Denies auditory hallucinations, Denies homicidal ideation and Denies suicidal ideation Endocrine: Endocrine: Denies cold intolerance, Denies excessive sweating, Denies fatigue, Denies heat intolerance and Denies palpitations Hematologic/Lymphatic: Hematologic/Lymphatic: Denies easy bleeding and Denies easy bruising Allergic/Immunologic: Allergic/Immunologic: Denies lip swelling, Denies throat swelling and Denies tongue swelling PMFSH Past Medical History Medical History Anxiety Disorder of organic acid metabolism IBS (irritable bowel syndrome) Morbid obesity 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
[2021-11-28] MEDS: SODIUM CHLORIDE 0.9% IV 3,200 ML/1,000 ML BAG 999 ML IV CONT (23:13)
[2021-11-28] MEDS: IBUPROFEN 600 MG TABLET PO (23:17)
[2021-11-28 23:43] LABS: Basophils Percent Auto 0.2 % (0.2-1.2); Eosinophils Absolute Auto 0.2 K/mm3 (0-0.3); Eosinophils Percent Auto 1.8 % (0-4.4); Hematocrit 32.9 % (37.0-47.0); Hemoglobin 10.3 g/dL (12.0-15.0); Immature Granulocyte Absolute 0.07 K/mm3 (0.00-0.031); Immature Granulocyte Percent A 0.7 % (0-0.5); Lymphocytes Absolute Auto 1.28 K/mm3 (0.9-3.2); Lymphocytes Percent Auto 12.2 % (18.3-44.2); Mean Corpuscular HGB Conc 31.3 g/dl (32-36); Mean Corpuscular Hemoglobin 27.2 pg (26-34); Mean Platelet Volume 10.2 fl (7.4-10.4); Monocytes Absolute Auto 0.5 K/mm3 (0.1-0.6); Monocytes Percent Auto 4.5 % (2.6-8.5); Neutrophils Absolute Auto 8.4 K/mm3 (1.3-6.7); Neutrophils Percent Auto 80.6 % (45.5-73.1); Platelet Count Result 254 k/mm3 (150-375); Red Blood Count 3.78 M/mm3 (4.2-5.4); Red Cell Distribution Width 14.2 % (11.5-14.5); White Blood Count 10.5 K/mm3 (4.5-10.0)
[2021-11-28 23:44] VITALS: BP 144/77; PULSE 97; RESP 20; O2SAT 100
[2021-11-28 23:51] LABS: Lactic Acid Reflex 1.3 mmol/L (0.7-2.1)
[2021-11-28 23:53] LABS: Prothrombin Time 13.2 Seconds (11.1-14.7)
[2021-11-28 23:54] LABS: Partial Thromboplastin Time 36.1 SECONDS (22.3-36.8)
[2021-11-28 23:55] LABS: Alanine Aminotransferase 18 U/L (4-35); Albumin Level 3.5 g/dL (3.5-5.1); Alkaline Phosphatase 129 U/L (38-126); Anion Gap 6 mmol/L (8-16); Aspartate Amino Transferase 33 U/L (14-36); Bilirubin,Total 0.2 mg/dL (0.2-1.3); Blood Urea Nitrogen 6 mg/dL (7-17); CRP 7.3 mg/dL (<1.0); Calcium 8.4 mg/dL (8.4-10.2); Carbon Dioxide 26 mmol/L (22-30); Chloride 105 mmol/L (98-107); Estimated CRCL calculation 142 ml/min; Estimated Glomerular Filt Rate > 60; Glucose 87 mg/dL (65-110); Potassium 3.1 mmol/L (3.4-5.0); Sodium 137 mmol/L (137-145)
[2021-11-29] MEDS: SODIUM CHLORIDE 0.9% IV 3,200 ML/1,000 ML BAG 999 ML IV CONT ×2 (00:16→01:20)
[2021-11-29] MEDS: POTASSIUM CHLORIDE 20 MEQ PACKET (FOR LIQUID) 40 MEQ PO (00:17)
[2021-11-29 00:19] LABS: Add Urine Microscopic? YES; Appearance Urine Cloudy (Clear); Bacteria Urine Trace /hpf; Bilirubin Urine Negative (Negative); Blood Urine 3+ (Negative); Color Urine Yellow (Yellow); Glucose Urine UA Negative (Negative); Ketones Urine Negative (Negative); Leukocyte Esterase Ur 1+ LEU/UL (Negative); Mucus Urine Rare /lpf; Nitrate Urine Negative (Negative); Protein Urine Negative (Negative); RBC Urine 21-50 /hpf (0-2); Specific Grav Ur 1.014 (1.001-1.035); Squamous Epithelial Cell Urine Rare /hpf (Few); Urobilinogen Urine Negative mg/dL (<2.0); WBC Urine 31-50 /hpf
--- NOTE | 2021-11-29 00:20 | PC.NURSE ---
called lab and talked to Milagros. Added on a D dimer at 0020
[2021-11-29 00:32] LABS: D Dimer 1.37 ug/mL (<0.48)
[2021-11-29 01:21] VITALS: BP 118/89; PULSE 101; RESP 22; TEMP 38.1; O2SAT 99
[2021-11-29 01:31] VITALS: BP 139/80; PULSE 103; RESP 20; O2SAT 99
[2021-11-29 02:01] VITALS: BP 132/78; PULSE 102; RESP 18; O2SAT 99
== END 2021-11-29 02:07 | disposition home or self-care (01) ==
PROVIDERS: Emergency Provider Emergency Medicine; PCP Nurse Practitioner Family
DX: O86.22 Infection of bladder following delivery (principal); N30.00 Acute cystitis without hematuria; O86.4 Pyrexia of unknown origin following delivery
CPT/HCPCS: 36415; 71046; 71275; 80053; 81001; 83605; 85025; 85380; 85610; 85730; 86140; 87040; 87086; 87088; 96360; 96361; 99284; A9270; J0696; J7030; Q9967